=== PATIENT | male | born 1980 | race Two or more races ===

== ENCOUNTER 2021-01-04 20:49 | Inpatient (IN) | payer SELFPAY ==
[~2021-01-04] VITALS: Ht 203.2 cm; Wt 116.1 kg
--- NOTE | 2021-01-04 21:22 | PHYS DOC ---
Adult General Chief Complaint Chief Complaint: ANKLE PROBLEM HPI HPI Patient is a 40 year old male with no significant past medical history presents emergency department complaining of left-sided ankle and foot pain after a fall. Patient states that 3 PM today he was at work when he fell approximately 10 feet down and landed on his left foot. A popping sensation in the left ankle. Was seen in an urgent care where they stated that he had a tib-fib fracture, splinted the patient centimeter. Denies any head injury or loss of conscious. Review of Systems Review of Systems Constitutional: Denies fever or chills [] Eyes: Denies change in visual acuity, redness, or eye pain [] HENT: Denies nasal congestion or sore throat [] Respiratory: Denies cough or shortness of breath [] Cardiovascular: No additional information not addressed in HPI [] GI: Denies abdominal pain, nausea, vomiting, bloody stools or diarrhea [] : Denies dysuria or hematuria [] Musculoskeletal: Denies back pain or joint pain [] Integument: Denies rash or skin lesions [] Neurologic: Denies headache, focal weakness or sensory changes [] Endocrine: Denies polyuria or polydipsia [] All other systems were reviewed and found to be within normal limits, except as documented in this note. Current Medications Current Medications Current Medications Medications (Trade) Dose Ordered Sig/Jose A Start Time Stop Time Status Last Admin Dose Admin Oxycodone/ Acetaminophen (Percocet 5/325) 2 tab 1X ONCE 01/04/21 22:00 01/04/21 22:01 DC 01/04/21 21:48 2 TAB Allergies Allergies Allergies Coded Allergies Type Severity Reaction Last Updated Verified No Known Drug Allergies 01/04/21 No Physical Exam Physical Exam Constitutional: Well developed, well nourished, no acute distress, non-toxic appearance. [] HENT: Normocephalic, atraumatic, bilateral external ears normal, oropharynx moist, no oral exudates, nose normal. [] Eyes: PERRLA, EOMI, conjunctiva normal, no discharge. [] Neck: Normal range of motion, no tenderness, supple, no stridor. [] Cardiovascular:Heart rate regular rhythm, no murmur [] Lungs & Thorax: Bilateral breath sounds clear to auscultation [] Abdomen: Bowel sounds normal, soft, no tenderness, no masses, no pulsatile masses. [] Skin: Warm, dry, no erythema, no rash. [] Back: No tenderness, no CVA tenderness. [] Extremities: Significant tenderness over the left distal foreleg and proximal ankle, no cyanosis, no clubbing, ROM intact, no edema. [] Neurologic: Alert and oriented X 3, normal motor function, normal sensory function, no focal deficits noted. [] Psychologic: Affect normal, judgement normal, mood normal. [] Current Patient Data Vital Signs Vital Signs Date Time Temp Pulse Resp B/P (MAP) Pulse Ox O2 Delivery O2 Flow Rate FiO2 01/04/21 21:48 97 EKG EKG [] Radiology/Procedures Radiology/Procedures [] Course & Med Decision Making Course & Med Decision Making Pertinent Labs and Imaging studies reviewed. (See chart for details) 40M presenting with significant left-sided ankle and leg pain after a fall. Will obtain x-rays and treat the patient for presumed tib-fib fracture Dragon Disclaimer Dragon Disclaimer This electronic medical record was generated, in whole or in part, using a voice recognition dictation system. Departure Departure Impression: Primary Impression: Unstable left ankle Disposition: ADMITTED INPT THIS HOSP Condition: YESI HENRIQUEZ MD Jan 04, 2021 21:22
--- NOTE | 2021-01-04 21:43 | RAD ---
XR FOOT_LEFT 3 VIEWS, XR EXAM OF ANKLE_LEFT 2V DATE: 01/04/2021 9:34 PM INDICATION: Reason: fall / Spl. Instructions: / History: COMPARISON: None. FINDINGS/ IMPRESSION: Acute comminuted and mildly displaced distal tibia fracture with involvement of the tibial plafond. A nkle joint is grossly in alignment. Acute nonspecific transverse fracture of the mid to distal fibula. Electronically signed by: Modesto Balderas MD (01/04/2021 9:41 PM) ABIMAEL
--- NOTE | 2021-01-04 21:45 | RAD ---
XR LT TIBIA + FIBULA, XR KNEE _3 VIEWS_LT DATE: 01/04/2021 9:34 PM INDICATION: Pain, fall COMPARISON: None. FINDINGS/ IMPRESSION: No knee acute fracture or dislocation of the knee. Acute fractures of the distal tibia and fibula as described on concurrent ankle radiograph report. Pr oximal tibia and fibula are intact. Electronically signed by: Modesto Balderas MD (01/04/2021 9:43 PM) ALICIA
[2021-01-04] MEDS ORDERED: oxyCODONE/APAP 5/325 1 TAB TABLET PO ONE (22:00)
[2021-01-04] MEDS ORDERED: KETOROLAC 15 MG/ML VIAL. IVP ONE (22:30)
[2021-01-04 23:20] VITALS: BP 153/88
[2021-01-04] MEDS: MORPHINE SULFATE 4 MG/ML VIAL. IV PRN (23:53)
[2021-01-05] MEDS: MORPHINE SULFATE 4 MG/ML VIAL. IV PRN ×6 (02:26→20:30)
[2021-01-05] MEDS: IV NORMAL SALINE 1000ML BAG 1,000 ML IV SCH ×4 (02:27→22:00)
[2021-01-05 03:00] VITALS: BP 142/91
[2021-01-05] MEDS: KETOROLAC 15 MG/ML VIAL. IV SCH ×4 (05:58→23:24)
--- NOTE | 2021-01-05 06:32 | EKG ---
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
[2021-01-05 07:00] VITALS: BP 145/72
[2021-01-05 08:06] LABS: BASO % 0 % (0-3); EOS % 0 % (0-3); HEMATOCRIT 41.6 % (39.0-53.0); HEMOGLOBIN 14.2 g/dL (13.0-17.5); LYMPH # 1.4 x10^3/uL (1.0-4.8); LYMPH % 18 % (24-48); MEAN CORPUSCULAR HEMOGLOBIN 31 pg (25-35); MEAN CORPUSCULAR HGB CONC 34 g/dL (31-37); MEAN CORPUSCULAR VOLUME 90 fL (79-100); MONO # 0.8 x10^3/uL (0.0-1.1); MONO % 11 % (0-9); NEUT # 5.6 x10^3/uL (1.8-7.7); NEUT % 71 % (31-73); PLATELET COUNT 246 x10^3/uL (140-400); RED BLOOD COUNT 4.61 x10^6/uL (4.30-5.70); RED CELL DISTRIBUTION WIDTH 13.4 % (11.5-14.5); WHITE BLOOD COUNT 7.9 x10^3/uL (4.0-11.0)
[2021-01-05 08:24] LABS: CALCIUM 9.1 mg/dL (8.5-10.1); CREATININE 0.9 mg/dL (0.7-1.3); GFR 92.5; POTASSIUM 3.7 mmol/L (3.5-5.1)
--- NOTE | 2021-01-05 10:52 | PDOC1 ---
History and Physical Date of Admission Date of Admission DATE: 01/05/21 TIME: 10:50 Identification/Chief Complaint Chief Complaint ANKLE PAIN, FALL FROM A TREE AT HOME 01-04 History of Present Illness History of Present Illness 40 year old male with no significant past medical history presents emergency department complaining of left-sided ankle and foot pain after a fall. FROM A TREE Patient states that ON 01-04 he fell approximately 10 feet down and landed on his left foot. A popping sensation in the left ankle. Was seen in an urgent care where they stated that he had a tib-fib fracture, splinted the patient . Denies any head injury or loss of conscious. 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 Past Medical History Cardiovascular: No pertinent hx Pulmonary: No pertinent hx Heme/Onc: No pertinent hx Psych: No pertinent hx Infectious disease: No pertinent hx ENT: No pertinent hx Endocrine: No pertinent hx Dermatology: No pertinent hx Past Surgical History Past Surgical History: No pertinent history Family History Family History: Hypertension Current Problem List Problem List Problems Medical Problems: (1) Unstable left ankle Status: Acute Current Medications Current Medications Current Medications Oxycodone/ Acetaminophen (Percocet 5/325) 2 tab 1X ONCE PO Last administered on 01/04/21at 21:48; Start 01/04/21 at 22:00; Stop 01/04/21 at 22:01; Status DC Ketorolac Tromethamine (Toradol 15mg Vial) 15 mg 1X ONCE IVP Last administered on 01/04/21at 22:22; Start 01/04/21 at 22:30; Stop 01/04/21 at 22:31; Status DC Morphine Sulfate (Morphine Sulfate) 4 mg PRN Q2HR PRN IV SEVERE PAIN 7-10 Last administered on 01/05/21at 08:00; Start 01/04/21 at 22:15; Stop 01/05/21 at 22:14 Ketorolac Tromethamine (Toradol 15mg Vial) 15 mg Q6HRS IV Last administered on 01/05/21at 05:58; Start 01/05/21 at 06:00; Stop 01/10/21 at 05:59 Sodium Chloride 1,000 ml @ 100 mls/hr Q10H IV Last administered on 01/05/21at 02:27; Start 01/05/21 at 02:00 Allergies Allergies: Coded Allergies: No Known Drug Allergies (Unverified , 01/04/21) ROS Review of System 14 PT ROS OTHERWISE NEG General: No: Chills, Night Sweats, Fatigue, Malaise, Appetite, Other PSYCHOLOGICAL ROS: No: Anxiety, Behavioral Disorder, Concentration difficultie, Decreased libido, Depression, Disorientation, Hallucinations, Hostility, Irritablity, Memory difficulties, Mood Swings, Obsessive thoughts, Physical abuse, Sexual abuse, Sleep disturbances, Suicidal ideation, Other Eyes: No Blurry vision, No Decreased vision, No Double vision, No Dry eyes, No Excessive tearing, No Eye Pain, No Itchy Eyes, No Loss of vision, No Photoph obia, No Scotomata, No Uses contacts, No Uses glasses, No Other HEENT: No: Heacaches, Visual Changes, Hearing change, Nasal congestion, Nasal discharge, Oral lesions, Sinus pain, Sore Throat, Epistaxis, Sneezing, Snoring, Tinnitus, Vertigo, Vocal changes, Other ALLERGY AND IMMUNOLOGY: No: Hives, Insect Bite Sensitivity, Itchy/Watery Eyes, Nasal Congestion, Post Nasal Drip, Seasonal Allergies, Other Hematological and Lymphatic: No: Bleeding Problems, Blood Clots, Blood Transfusions, Brusing, Night Sweats, Pallor, Swollen Lymph Nodes, Other ENDOCRINE: No: Breast Changes, Galactorrhea, Hair Pattern Changes, Hot Flashes, Malaise/lethargy, Mood Swings, Palpitations, Polydipsia/polyuria, Skin Changes, Temperature Intolerance, Unexpected Weight Changes, Other Breast: No New/Changing Breast Lumps, No Nipple changes, No Nipple discharge, No Other Respiratory: No: Cough, Hemoptysis, Orthopnea, Pleuritic Pain, Shortness of breath, SOB with excertion, Sputum Changes, Stridor, Tachypnea, Wheezing, Other Cardiovascular: No Chest Pain, No Palpitations, No Orthopnea, No Paroxysmal Noc. Dyspnea, No Edema, No Lt Headedness, No Other Gastrointestinal: No Nausea, No Vomiting, No Abdominal Pain, No Diarrhea, No Constipation, No Melena, No Hematochezia, No Other Genitourinary: No Dysuria, No Frequency, No Incontinence, No Hematuria, No Re tention, No Discharge, No Urgency, No Pain, No Flank Pain, No Other, No , No , No , No , No , No , No Musculoskeletal: Yes Gait Disturbance, Yes Joint Pain Neurological: Yes Gait Disturbance; No Behavorial Changes, No Bowel/Bladder ControlChng, No Confusion, No Dizziness, No Headaches, No Impaired Coord/balance, No Memory Loss, No Numbness/Tingling, No Seizures, No Speech Problems, No Tremors, No Visual Changes, No Weakness, No Other Skin: No Dry Skin, No Eczema, No Hair Changes, No Lumps, No Mole Changes, No Mottling, No Nail Changes, No Pruritus, No Rash, No Skin Lesion Changes, No Other, No Acne Physical Exam Physical Exam Constitutional: Well developed, well nourished, no acute distress, non-toxic appearance. [] HENT: Normocephalic, atraumatic, bilateral external ears normal, oropharynx moist, no oral exudates, nose normal. [] Eyes: PERRLA, EOMI, conjunctiva normal, no discharge. [] Neck: Normal range of motion, no tenderness, supple, no stridor. [] Cardiovascular:Heart rate regular rhythm, no murmur [] Lungs & Thorax: Bilateral breath sounds clear to auscultation [] Abdomen: Bowel sounds normal, soft, no tenderness, no masses, no pulsatile masses. [] Skin: Warm, dry, no erythema, no rash. [] Back: No tenderness, no CVA tenderness. [] Extremities: Significant tenderness over the left distal foreleg and proximal ankle, no cyanosis, no clubbing, ROM intact, no edema. [] Neurologic: Alert and oriented X 3, , normal sensory function, no focal deficits noted. [] Psychologic: Affect normal, judgment normal, mood normal. [] General: Alert, Oriented X3, Cooperative, No acute distress, mild distress HEENT: Atraumatic, PERRLA, EOMI, Mucous membr. moist/pink Lungs: Clear to auscultation, Normal air movement Heart: S1S2, RRR, no thrills, no rubs, no gallops, no murmurs Breasts: Not examined Abdomen: Normal bowel sounds, Soft Rectal Exam: not examined PELVIC: Examination not indicated Extremities: No cyanosis Neuro: Normal speech, Cranial nerves 3-12 NL Psych/Mental Status: Mental status NL, Mood NL Vitals Vitals Vital Signs Date Time Temp Pulse Resp B/P (MAP) Pulse Ox O2 Delivery O2 Flow Rate FiO2 01/05/21 08:30 Room Air 01/05/21 07:00 97.9 74 18 145/72 (96) 97 97.9 Labs Labs Laboratory Tests Test 01/05/21 06:10 01/05/21 06:15 White Blood Count 7.9 x10^3/uL (4.0-11.0) Red Blood Count 4.61 x10^6/uL (4.30-5.70) Hemoglobin 14.2 g/dL (13.0-17.5) Hematocrit 41.6 % (39.0-53.0) Mean Corpuscular Volume 90 fL (79-100) Mean Corpuscular Hemoglobin 31 pg (25-35) Mean Corpuscular Hemoglobin Concent 34 g/dL (31-37) Red Cell Distribution Width 13.4 % (11.5-14.5) Platelet Count 246 x10^3/uL (140-400) Neutrophils (%) (Auto) 71 % (31-73) Lymphocytes (%) (Auto) 18 % (24-48) Monocytes (%) (Auto) 11 % (0-9) Eosinophils (%) (Auto) 0 % (0-3) Basophils (%) (Auto) 0 % (0-3) Neutrophils # (Auto) 5.6 x10^3/uL (1.8-7.7) Lymphocytes # (Auto) 1.4 x10^3/uL (1.0-4.8) Monocytes # (Auto) 0.8 x10^3/uL (0.0-1.1) Eosinophils # (Auto) 0.0 x10^3/uL (0.0-0.7) Basophils # (Auto) 0.0 x10^3/uL (0.0-0.2) Sodium Level 140 mmol/L (136-145) Potassium Level 3.7 mmol/L (3.5-5.1) Chloride Level 103 mmol/L (98-107) Carbon Dioxide Level 29 mmol/L (21-32) Anion Gap 8 (6-14) Blood Urea Nitrogen 15 mg/dL (8-26) Creatinine 0.9 mg/dL (0.7-1.3) Estimated GFR (Cockcroft-Gault) 92.5 Glucose Level 107 mg/dL (70-99) Calcium Level 9.1 mg/dL (8.5-10.1) Laboratory Tests Test 01/05/21 06:10 01/05/21 06:15 White Blood Count 7.9 x10^3/uL (4.0-11.0) Red Blood Count 4.61 x10^6/uL (4.30-5.70) Hemoglobin 14.2 g/dL (13.0-17.5) Hematocrit 41.6 % (39.0-53.0) Mean Corpuscular Volume 90 fL (79-100) Mean Corpuscular Hemoglobin 31 pg (25-35) Mean Corpuscular Hemoglobin Concent 34 g/dL (31-37) Red Cell Distribution Width 13.4 % (11.5-14.5) Platelet Count 246 x10^3/uL (140-400) Neutrophils (%) (Auto) 71 % (31-73) Lymphocytes (%) (Auto) 18 % (24-48) Monocytes (%) (Auto) 11 % (0-9) Eosinophils (%) (Auto) 0 % (0-3) Basophils (%) (Auto) 0 % (0-3) Neutrophils # (Auto) 5.6 x10^3/uL (1.8-7.7) Lymphocytes # (Auto) 1.4 x10^3/uL (1.0-4.8) Monocytes # (Auto) 0.8 x10^3/uL (0.0-1.1) Eosinophils # (Auto) 0.0 x10^3/uL (0.0-0.7) Basophils # (Auto) 0.0 x10^3/uL (0.0-0.2) Sodium Level 140 mmol/L (136-145) Potassium Level 3.7 mmol/L (3.5-5.1) Chloride Level 103 mmol/L (98-107) Carbon Dioxide Level 29 mmol/L (21-32) Anion Gap 8 (6-14) Blood Urea Nitrogen 15 mg/dL (8-26) Creatinine 0.9 mg/dL (0.7-1.3) Estimated GFR (Cockcroft-Gault) 92.5 Glucose Level 107 mg/dL (70-99) Calcium Level 9.1 mg/dL (8.5-10.1) Images Images XR FOOT_LEFT 3 VIEWS, XR EXAM OF ANKLE_LEFT 2V DATE: 01/04/2021 9:34 PM INDICATION: Reason: fall / Spl. Instructions: / History: COMPARISON: None. FINDINGS/ IMPRESSION: Acute comminuted and mildly displaced distal tibia fracture with involvement of the tibial plafond. Ankle joint is grossly in alignment. Acute nonspecific transverse fracture of the mid to distal fibula. Electronically signed by: Cammie Estrada MD (01/04/2021 9:41 PM) NIMAJENNIFFER DICTATED and SIGNED BY: CAMMIE ESTRADA MD PATIENT: OLGA LIDIA NGUYEN ACCOUNT: [id number] : 1980 LOCATION: ER AGE: 40 SEX: M EXAM STATUS: PRE ER ORD. PHYSICIAN: YESI FENG MD REASON: fall PROCEDURE: TIBIA FIBULA LEFT XR LT TIBIA + FIBULA, XR KNEE _3 VIEWS_LT DATE: 01/04/2021 9:34 PM INDICATION: Pain, fall COMPARISON: None. FINDINGS/ IMPRESSION: No knee acute fracture or dislocation of the knee. Acute fractures of the distal tibia and fibula as described on concurrent ankle radiograph report. Proximal tibia and fibula are intact. Electronically signed by: Cammie Estrada MD (01/04/2021 9:43 PM) NIMAJESSICA DICTATED and SIGNED BY: CAMMIE ESTRADA MD DATE: 01/04/21 [id number] VTE Prophylaxis Ordered VTE Prophylaxis Devices: No VTE Pharmacological Prophylaxi: Yes Assessment/Plan Assessment/Plan IMPRESSION: Acute fractures of the distal tibia and fibula Acute comminuted and mildly displaced distal tibia fracture with involvement of the tibial plafond. Ankle joint is grossly in alignment. highly comminuted intra-articular fracture of the distal tibia. The weightbearing articular surface is shattered into many fragments. The largest central fragments are rotated by 45 degrees and depressed by approximately 1 cm. The largest fragments measure 2.7 x 1.4 cm and 1.7 x 1.3 cm, respectively. An anterolateral fragment is displaced anterolaterally and locked against the anterolateral aspect of the talar dome. Multiple fragments involve the base of the medial malleolus, which remains normally aligned with the talus Acute nonspecific transverse fracture of the mid to distal fibula. MECHANICAL FALL plan admit iv pain control ORTHO CONSULT DVT PROPHYLAXIS NPO P MN DICTATED Justifications for Admission Other Justification JERRY ISIDRO MD Jan 05, 2021 10:51
[2021-01-05 11:00] VITALS: BP 138/80
--- NOTE | 2021-01-05 13:48 | PDOC2 ---
CONSULT Date of Consult Date of Consult DATE: 01/05/21 TIME: 13:47 Reason for Consult Reason for Consult: Left distal tibia fracture Identification/Chief Complaint Chief Complaint Left ankle pain after a fall Source Source: Chart review, Patient History of Present Illness Reason for Visit: This 40-year-old man was working at home, cutting down a tree, and he was 9 or 10 feet up in the air when he fell. There was no major deformity but he had immediate pain and swelling at the ankle and has been unable to weight-bear since. Past Medical History Past Medical History Denies any significant medical history Past Surgical History Past Surgical History No surgeries Family History Family History: Hypertension Social History No Lives: with Family Current Problem List Problem List Problems Medical Problems: (1) Unstable left ankle Status: Acute Current Medications Current Medications Current Medications Oxycodone/ Acetaminophen (Percocet 5/325) 2 tab 1X ONCE PO Last administered on 01/04/21at 21:48; Start 01/04/21 at 22:00; Stop 01/04/21 at 22:01; Status DC Ketorolac Tromethamine (Toradol 15mg Vial) 15 mg 1X ONCE IVP Last administered on 01/04/21at 22:22; Start 01/04/21 at 22:30; Stop 01/04/21 at 22:31; Status DC Morphine Sulfate (Morphine Sulfate) 4 mg PRN Q2HR PRN IV SEVERE PAIN 7-10 Last administered on 01/05/21at 12:27; Start 01/04/21 at 22:15; Stop 01/05/21 at 22:14 Ketorolac Tromethamine (Toradol 15mg Vial) 15 mg Q6HRS IV Last administered on 01/05/21at 12:26; Start 01/05/21 at 06:00; Stop 01/10/21 at 05:59 Sodium Chloride 1,000 ml @ 100 mls/hr Q10H IV Last administered on 01/05/21at 12:25; Start 01/05/21 at 02:00 Allergies Allergies: Coded Allergies: No Known Drug Allergies (Unverified , 01/04/21) ROS General: No: Chills, Night Sweats Eyes: No Double vision HEENT: No: Heacaches, Visual Changes Hematological and Lymphatic: No: Bleeding Problems, Blood Clots Respiratory: No: Cough, Shortness of breath Cardiovascular: No Chest Pain, No Palpitations Genitourinary: No Dysuria, No Hematuria Musculoskeletal: Yes Joint Pain, Yes Joint Swelling Skin: Yes Other (Has developed several large blisters over the fracture site) Physical Exam General: Alert, Cooperative HEENT: Atraumatic Lungs: Normal air movement Heart: Regular rate Abdomen: Soft Extremities: Other Skin: Other (Fracture blisters at the ankle joint) MUSCULOSKELETAL: Abnormal exam of left (Ankle as above) Vitals VITALS Vital Signs Date Time Temp Pulse Resp B/P (MAP) Pulse Ox O2 Delivery O2 Flow Rate FiO2 01/05/21 12:57 Room Air 01/05/21 11:00 98.4 72 18 138/80 (99) 100 98.4 Labs Labs Laboratory Tests Test 01/05/21 06:10 01/05/21 06:15 White Blood Count 7.9 x10^3/uL (4.0-11.0) Red Blood Count 4.61 x10^6/uL (4.30-5.70) Hemoglobin 14.2 g/dL (13.0-17.5) Hematocrit 41.6 % (39.0-53.0) Mean Corpuscular Volume 90 fL (79-100) Mean Corpuscular Hemoglobin 31 pg (25-35) Mean Corpuscular Hemoglobin Concent 34 g/dL (31-37) Red Cell Distribution Width 13.4 % (11.5-14.5) Platelet Count 246 x10^3/uL (140-400) Neutrophils (%) (Auto) 71 % (31-73) Lymphocytes (%) (Auto) 18 % (24-48) Monocytes (%) (Auto) 11 % (0-9) Eosinophils (%) (Auto) 0 % (0-3) Basophils (%) (Auto) 0 % (0-3) Neutrophils # (Auto) 5.6 x10^3/uL (1.8-7.7) Lymphocytes # (Auto) 1.4 x10^3/uL (1.0-4.8) Monocytes # (Auto) 0.8 x10^3/uL (0.0-1.1) Eosinophils # (Auto) 0.0 x10^3/uL (0.0-0.7) Basophils # (Auto) 0.0 x10^3/uL (0.0-0.2) Sodium Level 140 mmol/L (136-145) Potassium Level 3.7 mmol/L (3.5-5.1) Chloride Level 103 mmol/L (98-107) Carbon Dioxide Level 29 mmol/L (21-32) Anion Gap 8 (6-14) Blood Urea Nitrogen 15 mg/dL (8-26) Creatinine 0.9 mg/dL (0.7-1.3) Estimated GFR (Cockcroft-Gault) 92.5 Glucose Level 107 mg/dL (70-99) Calcium Level 9.1 mg/dL (8.5-10.1) Laboratory Tests Test 01/05/21 06:10 01/05/21 06:15 White Blood Count 7.9 x10^3/uL (4.0-11.0) Red Blood Count 4.61 x10^6/uL (4.30-5.70) Hemoglobin 14.2 g/dL (13.0-17.5) Hematocrit 41.6 % (39.0-53.0) Mean Corpuscular Volume 90 fL (79-100) Mean Corpuscular Hemoglobin 31 pg (25-35) Mean Corpuscular Hemoglobin Concent 34 g/dL (31-37) Red Cell Distribution Width 13.4 % (11.5-14.5) Platelet Count 246 x10^3/uL (140-400) Neutrophils (%) (Auto) 71 % (31-73) Lymphocytes (%) (Auto) 18 % (24-48) Monocytes (%) (Auto) 11 % (0-9) Eosinophils (%) (Auto) 0 % (0-3) Basophils (%) (Auto) 0 % (0-3) Neutrophils # (Auto) 5.6 x10^3/uL (1.8-7.7) Lymphocytes # (Auto) 1.4 x10^3/uL (1.0-4.8) Monocytes # (Auto) 0.8 x10^3/uL (0.0-1.1) Eosinophils # (Auto) 0.0 x10^3/uL (0.0-0.7) Basophils # (Auto) 0.0 x10^3/uL (0.0-0.2) Sodium Level 140 mmol/L (136-145) Potassium Level 3.7 mmol/L (3.5-5.1) Chloride Level 103 mmol/L (98-107) Carbon Dioxide Level 29 mmol/L (21-32) Anion Gap 8 (6-14) Blood Urea Nitrogen 15 mg/dL (8-26) Creatinine 0.9 mg/dL (0.7-1.3) Estimated GFR (Cockcroft-Gault) 92.5 Glucose Level 107 mg/dL (70-99) Calcium Level 9.1 mg/dL (8.5-10.1) Images Images Reports reviewed, images independently reviewed. Comminuted tibial pilon fracture and associated fibula fracture. [facility] [address] [place] [address] IMAGING REPORT Signed PATIENT: OLGA LIDIA NGUYEN ACCOUNT: [id number] : 1980 LOCATION: ER AGE: 40 SEX: M EXAM STATUS: PRE ER ORD. PHYSICIAN: YESI FENG MD REASON: fall PROCEDURE: TIBIA FIBULA LEFT XR LT TIBIA + FIBULA, XR KNEE _3 VIEWS_LT DATE: 01/04/2021 9:34 PM INDICATION: Pain, fall COMPARISON: None. FINDINGS/ IMPRESSION: No knee acute fracture or dislocation of the knee. Acute fractures of the distal tibia and fibula as described on concurrent ankle radiograph report. Proximal tibia and fibula are intact. Electronically signed by: Cammie Balderas MD (01/04/2021 9:43 PM) [facility] DICTATED and SIGNED BY: CAMMIE BALDERAS MD DATE: 01/04/212140 I reviewed the CT scan, and there is proximal migration of the talus into the tibiotalar joint, with comminuted tibiotalar joint as per the report below: [facility] [address] [place] [address] IMAGING REPORT Signed PATIENT: OLGA LIDIA NGUYEN ACCOUNT: [id number] : 1980 LOCATION: [address] [place] [address] AGE: 40 SEX: M EXAM STATUS: ADM IN ORD. PHYSICIAN: SANTOS GREENFIELD MD REASON: evaluate fracture at ankle and distal tibia (I do NOT need proximal tibia) PROCEDURE: CT LOWER EXTREMITY WO LEFT EXAM: CT left foot and ankle without contrast. HISTORY: Fracture, preoperative planning. TECHNIQUE: CT of the left foot and ankle was performed without intravenous contrast. One or more of the following individualized dose reduction techniques were utilized for this examination: 1. Automated exposure control. 2. Adjustment of the mA and/or kV according to patient size. 3. Use of iterative reconstruction technique. COMPARISON: Yesterday's plain radiographs. FINDINGS: There is a highly comminuted intra-articular fracture of the distal tibia. The weightbearing articular surface is shattered into many fragments. The largest central fragments are rotated by 45 degrees and depressed by approximately 1 cm. The largest fragments measure 2.7 x 1.4 cm and 1.7 x 1.3 cm, respectively. An anterolateral fragment is displaced anterolaterally and locked against the anterolateral aspect of the talar dome. Multiple fragments involve the base of the medial malleolus, which remains normally aligned with the talus. The posterior malleolus is rotated and displaced, resulting in an articular surface gap of 1.6 cm. There is a nondisplaced transverse fracture of the distal fibular diaphysis 8.5 cm proximal to the tibial plafond. Small avulsion fragments involve the anterior and calcaneofibular ligament origins. The posterior tibial and flexor digitorum tendons are included in a fracture gap created by posterior and medial malleolar fragments. The lateral tendons are not included in a fracture defect. No fractures are appreciated within the left foot. Joint spaces and alignment are maintained. There is diffuse soft tissue swelling about the foot and ankle. Blisters are noted along the medial ankle. There are moderate plantar and posterior calcaneal spurs. IMPRESSION: 1. Highly comminuted intra-articular fracture of the distal tibia. The largest fragments of the central weightbearing portion of the tibial articular surface are depressed by approximately 1 cm and rotated by 45 degrees. Posterior malleolar and Tillaux-type fragments are displaced outward, and are currently locked along the margins of the talar dome. 2. The posterior tibial and flexor digitorum tendons are included in a fracture gap between medial and posterior malleolar fragments. 3. Transverse nondisplaced fracture of the fibular diaphysis. Small gallstone fragments at the lateral malleolus. Electronically signed by: Aislinn Mtz MD (01/05/2021 2:59 PM) [facility] DICTATED and SIGNED BY: VLADISLAV MTZ MD DATE: 01/05/21 1449 Assessment/Plan Assessment/Plan Displaced pilon fracture of left tibia, initial encounter for closed fracture S82.872A Nondisplaced transverse fracture of shaft of left fibula, initial encounter for closed fracture S82.425A Unfortunately he already has developed severe fracture blisters around the medial distal tibia where an incision would be used. This precludes any immediate open fracture surgery because with the soft tissues being so severely compromised, the risk of infection is unacceptably high. The correct treatment for this would involve immobilization, preferably with the joint reduced at its proper length. There is at least a centimeter of shortening, and so I spoke to the patient about my recommendation for placement of an external fixator which is basically portable traction, allowing traction across the ankle joint and should allow improved alignment and improve the long- term outcome by preventing any further shortening displacement or partial healing in the incorrect position. Holding the ankle out to the correct length will be used for about 3 weeks, or until the soft tissues are acceptable for the open reduction and internal fixation of the tibiotalar joint. I spoke to him about the need for two surgeries for this injury, one now with the external fixator, and then a delayed second surgery once the soft tissues can accommodate open surgery, for removal of the external fixator and open treatment with internal fixation using plates and screws. SANTOS GREENFIELD MD Jan 05, 2021 13:48
--- NOTE | 2021-01-05 15:01 | RAD ---
EXAM: CT left foot and ankle without contrast. HISTORY: Fracture, preoperative planning. TECHNIQUE: CT of the left foot and ankle was performed without intravenous contrast. One or more of t he following individualized dose reduction techniques were utilized for this examination: 1. Automated exposure control. 2. Adjustment of the mA and/or kV according to patient size. 3. Use of iterative reconstruction technique. COMPARISON: Yesterday's plain radiographs. FINDINGS: There is a highly comminuted intra-articular fracture of the distal tibia. The weightbearin g articular surface is shattered into many fragments. The largest central fragments are rotated by 45 degrees and depressed by approximately 1 cm. The largest fragments measure 2.7 x 1.4 cm and 1.7 x 1. 3 cm, respectively. An anterolateral fragment is displaced anterolaterally and locked against the ant erolateral aspect of the talar dome. Multiple fragments involve the base of the medial malleolus, whi ch remains normally aligned with the talus. The posterior malleolus is rotated and displaced, resulti ng in an articular surface gap of 1.6 cm. There is a nondisplaced transverse fracture of the distal fibular diaphysis 8.5 cm proximal to the ti bial plafond. Small avulsion fragments involve the anterior and calcaneofibular ligament origins. The posterior tibial and flexor digitorum tendons are included in a fracture gap created by posterior and medial malleolar fragments. The lateral tendons are not included in a fracture defect. No fractures are appreciated within the left foot. Joint spaces and alignment are maintained. There is diffuse soft tissue swelling about the foot and ankle. Blisters are noted along the medial a nkle. There are moderate plantar and posterior calcaneal spurs. IMPRESSION: 1. Highly comminuted intra-articular fracture of the distal tibia. The largest fragments of the centr al weightbearing portion of the tibial articular surface are depressed by approximately 1 cm and rota aquiles by 45 degrees. Posterior malleolar and Tillaux-type fragments are displaced outward, and are curr ently locked along the margins of the talar dome. 2. The posterior tibial and flexor digitorum tendons are included in a fracture gap between medial an d posterior malleolar fragments. 3. Transverse nondisplaced fracture of the fibular diaphysis. Small gallstone fragments at the latera l malleolus. Electronically signed by: Aislinn Mtz MD (01/05/2021 2:59 PM) [facility]
[2021-01-05] MEDS ORDERED: ZOLPIDEM 5 MG TABLET. PO PRN (16:15)
[2021-01-05] MEDS ORDERED: SODIUM PHOSPHATES 19/7GM 133 ML ENEMA. PR PRN (16:15)
[2021-01-05] MEDS ORDERED: DOCUSATE SODIUM 100 MG CAPSULE. PO PRN (16:15)
[2021-01-05] MEDS ORDERED: MAG HYDROX/ALUMINUM HYD/SIMETH 30 ML ORAL.SUSP PO PRN (16:15)
[2021-01-05] MEDS ORDERED: ONDANSETRON PF 4 MG/2 ML VIAL. IV PRN (16:15)
[2021-01-05] MEDS ORDERED: LORazepam 0.5 MG TABLET PO PRN (16:15)
[2021-01-05] MEDS ORDERED: 0.9 % SODIUM CHLORIDE 10 ML DISP.SYRIN. IV PRN (16:15)
[2021-01-05] MEDS ORDERED: guaiFENesin ORAL 200 MG/10 ML LIQUID. PO PRN (16:15)
[2021-01-05] MEDS ORDERED: ALBUTEROL SULFATE 2.5 MG/3 ML NEBU. NEB PRN (16:15)
[2021-01-05] MEDS ORDERED: cloNIDine HCL 0.1 MG TABLET PO PRN (16:15)
[2021-01-05] MEDS ORDERED: ACETAMINOPHEN 325 MG TABLET. PO PRN (16:15)
[2021-01-05] MEDS ORDERED: ENOXAPARIN 40 MG/0.4 ML SYRINGE. SQ SCH (17:00)
--- NOTE | 2021-01-05 17:10 | NUR ---
Paged Dr. Mariscal, no blood thinner at this time. Will d/c order.
--- NOTE | 2021-01-05 17:37 | HP ---
ADMIT DATE: HISTORY OF PRESENT ILLNESS: This pleasant 40-year-old male, fell from a tree at home while cutting the limb yesterday, complaining of left-sided ankle and foot pain. He fell approximately 10 feet and landed on his left foot and had a popping sensation, went to urgent care where x-ray showed a tib-fib fracture. He is currently splinted and seen by Ortho. Plan initially for surgery tomorrow. PAST MEDICAL HISTORY: No significant pulmonary or cardiovascular history. No endocrine history, no previous surgery. FAMILY HISTORY: Positive for hypertension. CURRENT MEDICATIONS: Include Percocet, IV Toradol, morphine. ALLERGIES: He has no known drug allergies. REVIEW OF SYSTEMS: A 14-point review of systems negative chest pain, shortness of breath. Denies double vision, headache, bleeding problems, blood clots. Denies chest pain, cough, fever, pleuritic pain, shortness of breath. Denies palpitations, orthopnea, abdominal pain, diarrhea, constipation. Denies blood per rectum. Denies urinary frequency, incontinence or hematuria. Denies bowel or bladder problems. No impaired coordination. No memory loss, no speech loss or tremors. Denies visual changes or head injury. No weakness. Denies hair changes, hearing changes, lumps, mole changes, rashes, no skin lesions or changes. PHYSICAL EXAMINATION: GENERAL: Well-developed, well-nourished, no acute distress, appears very healthy. NECK: Supple. HEENT: Throat and pharynx clear. Pupils are equal and reactive to light. LUNGS: Clear to auscultation. CARDIOVASCULAR: Regular rate and rhythm without thrill, gallop or murmur, S3 or S4. ABDOMEN: Soft, nontender. EXTREMITIES: Without erythema or rash. BACK: No CVA tenderness. He has tenderness of the left distal foreleg and proximal ankle. No cyanosis or clubbing. NEUROLOGIC: He is alert and oriented. Normal sensory function. Affect is normal. Judgment is normal. Mood is normal. He is alert and oriented, mild distress. Cranial nerves III through XII are grossly intact. Mood is normal. LABORATORY DATA: Show white count of 7.9, hemoglobin 14.2, MCV is 90, platelets 246,000. Sodium 140, potassium 3.7, chloride 103, CO2 of 29, BUN 15, creatinine 0.9, glucose 107. UA is pending. X-rays of the foot shows acute mildly displaced distal tibia fracture. There is a comminuted intra-articular fracture of his distal tibia with a central fragment rotated to 45 degrees and depressed by 1 cm, largest fragment was 2.7 x 1.4 cm, 1.7 x 1.3 cm. There were multiple fragments involving the base of the medial malleolus normally aligned with talus. IMPRESSION: Mechanical fall. PLAN: Admit. IV pain control. Ortho consult. DVT prophylaxis. N.p.o. after midnight. The patient will be seen by Dr. Mariscal. Anticipate length of stay is two to three days. PROGNOSIS: Good. JERRY ISIDRO MD DR: CARINE/alayna JOB#: [id number] / [id number]
[2021-01-05] MEDS: HYDROcodone/APAP 7.5/325MG 1 TAB TABLET PO PRN ×2 (17:52→23:25)
[2021-01-05 19:29] VITALS: BP 151/70
[2021-01-05 23:20] VITALS: BP 132/71
[2021-01-06] VITALS (13 sets, daily range): BP systolic 116–148; BP diastolic 63–81
[2021-01-06] MEDS: IV NORMAL SALINE 1000ML BAG 1,000 ML IV SCH ×4 (02:15→22:43)
[2021-01-06] MEDS: KETOROLAC 15 MG/ML VIAL. IV SCH ×4 (05:38→22:37)
[2021-01-06] MEDS: HYDROcodone/APAP 7.5/325MG 1 TAB TABLET PO PRN ×2 (05:39→22:37)
[2021-01-06] MEDS: HYDROmorphone 2 MG/ML VIAL IVP PRN ×2 (08:05→12:16)
--- NOTE | 2021-01-06 11:25 | NUR ---
SW following. Discussed with RN, pt from home, room air, NPO. Pt having the first of two surgeries today. The second surgery will be done in 3 weeks time. Med Assist following for self pay status. PT/OT ordered. SW will continue to follow.
[2021-01-06] MEDS ORDERED: MIDAZOLAM HCL/PF 2 MG/2 ML VIAL. ONE (16:32)
[2021-01-06] MEDS ORDERED: fentaNYL PF VIAL 100 MCG/2 ML VIAL ONE (16:32)
[2021-01-06] MEDS ORDERED: DEXAMETHASONE SOD PHOS 4 MG/ML VIAL ONE (16:32)
[2021-01-06] MEDS ORDERED: PROPOFOL 10 MG/ML (20ML) VIAL. IV ONE (16:32)
[2021-01-06] MEDS ORDERED: SEVOFLURANE 61 TO 120 MINUTES. IH ONE (16:32)
[2021-01-06] MEDS ORDERED: LIDOCAINE 2% PF 5 ML VIAL. ONE (16:32)
[2021-01-06] MEDS ORDERED: ONDANSETRON PF 4 MG/2 ML VIAL. ONE (16:33)
[2021-01-06] MEDS ORDERED: BUPIVACAINE-EPI 0.25% 30 ML VIAL KIT. ONE (16:40)
[2021-01-06] MEDS ORDERED: ceFAZolin SODIUM IV Push 1 GM VIAL. IVP ONE (18:00)
--- NOTE | 2021-01-06 18:27 | PDOC ---
PROGRESS NOTES Date of Service: DATE: 01/06/21 TIME: 18:25 Chief Complaint Chief Complaint lower leg fracture after a fall Highly comminuted intra-articular fracture of the distal tibia. leg pain History of Present Illness History of Present Illness to OR today, Dr. Loida Jacksons Vitals Vital Signs Date Time Temp Pulse Resp B/P (MAP) Pulse Ox O2 Delivery O2 Flow Rate FiO2 01/06/21 17:08 98.4 98 17 150/83 99 Room Air 98.4 Physical Exam General: Alert, Oriented X3, Cooperative, No acute distress, mild distress Heart: Regular rate Abdomen: Normal bowel sounds, Soft Extremities: No cyanosis Skin: Other (Fracture blisters at the ankle joint) Assessment and Plan Assessmemt and Plan Problems Medical Problems: (1) Unstable left ankle Status: Acute Comment Review of Relevant I have reviewed the following items keyur (where applicable) has been applied. Labs Laboratory Tests Test 01/05/21 01:26 01/05/21 06:10 01/05/21 06:15 Coronavirus (PCR) Not detected (Not Detected) White Blood Count 7.9 x10^3/uL (4.0-11.0) Red Blood Count 4.61 x10^6/uL (4.30-5.70) Hemoglobin 14.2 g/dL (13.0-17.5) Hematocrit 41.6 % (39.0-53.0) Mean Corpuscular Volume 90 fL (79-100) Mean Corpuscular Hemoglobin 31 pg (25-35) Mean Corpuscular Hemoglobin Concent 34 g/dL (31-37) Red Cell Distribution Width 13.4 % (11.5-14.5) Platelet Count 246 x10^3/uL (140-400) Neutrophils (%) (Auto) 71 % (31-73) Lymphocytes (%) (Auto) 18 % (24-48) Monocytes (%) (Auto) 11 % (0-9) Eosinophils (%) (Auto) 0 % (0-3) Basophils (%) (Auto) 0 % (0-3) Neutrophils # (Auto) 5.6 x10^3/uL (1.8-7.7) Lymphocytes # (Auto) 1.4 x10^3/uL (1.0-4.8) Monocytes # (Auto) 0.8 x10^3/uL (0.0-1.1) Eosinophils # (Auto) 0.0 x10^3/uL (0.0-0.7) Basophils # (Auto) 0.0 x10^3/uL (0.0-0.2) Sodium Level 140 mmol/L (136-145) Potassium Level 3.7 mmol/L (3.5-5.1) Chloride Level 103 mmol/L (98-107) Carbon Dioxide Level 29 mmol/L (21-32) Anion Gap 8 (6-14) Blood Urea Nitrogen 15 mg/dL (8-26) Creatinine 0.9 mg/dL (0.7-1.3) Estimated GFR (Cockcroft-Gault) 92.5 Glucose Level 107 mg/dL (70-99) Calcium Level 9.1 mg/dL (8.5-10.1) Medications Current Medications Oxycodone/ Acetaminophen (Percocet 5/325) 2 tab 1X ONCE PO Last administered on 01/04/21at 21:48; Start 01/04/21 at 22:00; Stop 01/04/21 at 22:01; Status DC Ketorolac Tromethamine (Toradol 15mg Vial) 15 mg 1X ONCE IVP Last administered on 01/04/21at 22:22; Start 01/04/21 at 22:30; Stop 01/04/21 at 22:31; Status DC Morphine Sulfate (Morphine Sulfate) 4 mg PRN Q2HR PRN IV SEVERE PAIN 7-10 Last administered on 01/05/21at 20:30; Start 01/04/21 at 22:15; Stop 01/05/21 at 22:14; Status DC Ketorolac Tromethamine (Toradol 15mg Vial) 15 mg Q6HRS IV Last administered on 01/06/21at 12:16; Start 01/05/21 at 06:00; Stop 01/10/21 at 05:59 Sodium Chloride 1,000 ml @ 100 mls/hr Q10H IV Last administered on 01/05/21at 22:00; Start 01/05/21 at 02:00; Stop 01/06/21 at 16:57; Status DC Hydromorphone HCl (Dilaudid) 0.7 mg PRN Q3HRS PRN IVP MODERATE TO SEVERE PAIN Last administered on 01/06/21at 12:16; Start 01/05/21 at 16:00 Acetaminophen/ Hydrocodone Bitart (Lortab 7.5/325) 1 tab PRN Q4HRS PRN PO MODERATE TO SEVERE PAIN Last administered on 01/06/21at 05:39; Start 01/05/21 at 16:00 Sodium Chloride (Normal Saline Flush) 3 ml QSHIFT PRN IV AFTER MEDS AND BLOOD DRAWS; Start 01/05/21 at 16:15 Sodium Chloride 1,000 ml @ 100 mls/hr Q10H IV Last administered on 01/06/21at 02:15; Start 01/05/21 at 16:15 Ondansetron HCl (Zofran) 4 mg PRN Q4HRS PRN IV NAUSEA/VOMITING; Start 01/05/21 at 16:15 Zolpidem Tartrate (Ambien) 5 mg PRN QHS PRN PO INSOMNIA; Start 01/05/21 at 16:15 Acetaminophen (Tylenol) 650 mg PRN Q4HRS PRN PO TEMP OVER 100.4F OR MILD PAIN; Start 01/05/21 at 16:15 Al Hydroxide/Mg Hydroxide (Mylanta Plus Xs) 30 ml PRN DAILY PRN PO HEARTBURN / GAS; Start 01/05/21 at 16:15 Clonidine HCl (Catapres) 0.1 mg PRN Q6HRS PRN PO SBP>160 OR DBP>90; Start 01/05/21 at 16:15 Sodium Monofluorophosphate (Fleet Adult) 133 ml PRN DAILY PRN AL CONSTIPATION; Start 01/05/21 at 16:15 Docusate Sodium (Colace) 100 mg PRN BID PRN PO HARD STOOLS; Start 01/05/21 at 16:15 Albuterol Sulfate (Ventolin Neb Soln) 2.5 mg PRN Q4HRS PRN NEB SHORTNESS OF BREATH; Start 01/05/21 at 16:15 Guaifenesin (Robitussin) 200 mg PRN Q4HRS PRN PO COUGH; Start 01/05/21 at 16:15 Lorazepam (Ativan) 0.5 mg PRN Q4HRS PRN PO ANXIETY / AGITATION; Start 01/05/21 at 16:15 Enoxaparin Sodium (Lovenox 40mg Syringe) 40 mg Q24H SQ ; Start 01/05/21 at 17:00; Stop 01/05/21 at 17:14; Status DC Sevoflurane (Ultane) 60 ml STK-MED ONCE IH ; Start 01/06/21 at 16:32; Stop 01/06/21 at 16:32; Status DC Fentanyl Citrate (Fentanyl 2ml Vial) 100 mcg STK-MED ONCE .ROUTE ; Start 01/06/21 at 16:32; Stop 01/06/21 at 16:32; Status DC Midazolam HCl (Versed) 2 mg STK-MED ONCE .ROUTE ; Start 01/06/21 at 16:32; Stop 01/06/21 at 16:32; Status DC Propofol (Diprivan) 200 mg STK-MED ONCE IV ; Start 01/06/21 at 16:32; Stop 01/06/21 at 16:33; Status DC Lidocaine HCl (Lidocaine Pf 2% Vial) 5 ml STK-MED ONCE .ROUTE ; Start 01/06/21 at 16:32; Stop 01/06/21 at 16:33; Status DC Dexamethasone Sodium Phosphate (Decadron) 4 mg STK-MED ONCE .ROUTE ; Start 01/06/21 at 16:32; Stop 01/06/21 at 16:33; Status DC Ondansetron HCl (Zofran) 4 mg STK-MED ONCE .ROUTE ; Start 01/06/21 at 16:33; Stop 01/06/21 at 16:33; Status DC Bupivacaine HCl/ Epinephrine Bitart (Sensorcain-Epi 0.25% Kit) 30 ml STK-MED ONCE .ROUTE ; Start 01/06/21 at 16:40; Stop 01/06/21 at 16:40; Status DC Cefazolin Sodium (Ancef) 1 gm STK-MED ONCE IVP ; Start 01/06/21 at 18:00; Stop 01/06/21 at 18:01; Status DC Vitals/I & O Vital Sign - Last 24 Hours 01/05/21 01/05/21 01/05/21 01/05/21 18:52 19:29 20:00 20:30 Temp 98.2 98.2 Pulse 69 Resp 20 18 B/P (MAP) 151/70 (97) Pulse Ox 98 98 O2 Delivery Room Air Room Air Room Air Room Air 2/14/01/05/21 01/05/21 01/06/21 21:00 23:20 23:25 00:25 Temp 98.8 98.8 Pulse 74 Resp 18 18 18 18 B/P (MAP) 132/71 (91) Pulse Ox 98 98 98 98 O2 Delivery Room Air Room Air Room Air Room Air 01/06/21 01/06/21 01/06/21 01/06/21 03:21 05:39 06:39 07:09 Temp 98.0 98.3 98.0 98.3 Pulse 76 68 Resp 18 18 18 B/P (MAP) 138/81 (100) 127/78 (94) Pulse Ox 97 97 99 O2 Delivery Room Air Room Air Room Air Room Air 01/06/21 01/06/21 01/06/21 01/06/21 08:35 11:11 12:16 12:46 Temp 97.8 97.8 Pulse 68 Resp 18 B/P (MAP) 116/63 (80) Pulse Ox 97 O2 Delivery Room Air Room Air Room Air Room Air 01/06/21 01/06/21 14:41 17:08 Temp 98.0 98.4 98.0 98.4 Pulse 82 98 Resp 18 17 B/P (MAP) 134/78 (96) 150/83 Pulse Ox 99 99 O2 Delivery Room Air Room Air Intake and Output 01/05/21 01/05/21 01/06/21 15:00 23:00 07:00 Intake Total 200 ml 450 ml 500 ml Balance 200 ml 450 ml 500 ml Justicifation of Admission Dx: Justifications for Admission: Justification of Admission Dx: Yes (leg fracture, req surg) JOAQUIN MARTIN MD Jan 06, 2021 18:27
[2021-01-06] MEDS ORDERED: MORPHINE SULFATE 2 MG/ML VIAL. ONE (19:36)
[2021-01-06] MEDS ORDERED: MORPHINE SULFATE 2 MG/ML VIAL. IV ONE (19:45)
[2021-01-06] MEDS ORDERED: oxyCODONE/APAP 5/325 1 TAB TABLET PO PRN ×2 (19:45)
--- NOTE | 2021-01-06 23:55 | NUR ---
Patient return from surgery at 2004. External fixator noted to LEFT ankle - sensation & ROM of toes intact. 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 Patient currently rates pain at 3-4 and states is currently comfortable. Vitals stable.
[2021-01-07 03:00] VITALS: BP 116/68
[2021-01-07] MEDS: IV NORMAL SALINE 1000ML BAG 1,000 ML IV SCH (06:04)
[2021-01-07] MEDS: KETOROLAC 15 MG/ML VIAL. IV SCH ×2 (06:04→12:00)
[2021-01-07] MEDS ORDERED: ASPIRIN ENTERIC COATED 325 MG TABLET.DR. PO SCH (08:00)
--- NOTE | 2021-01-07 14:35 | NUR ---
SW following. Discussed with RN, possible discharge home today. CARLOS A met with pt, and pt's family at bedside. [employer] has advised them on next steps. Pt is not eligible for Medicaid at this time. CARLOS A will continue to follow. Addendum: 01/07/21 at 1558 by ZE STRAUSS Pt needing a walker or crutches, pt is 6ft7 so standard walker is not tall enough. CARLOS A contacted [employer], pt can get a walker and tall crutches from [employer] ([address] [facility], [place] [address]) ph: [phone] - [employer] has crutches for $35. CARLOS A provided information to pt. No further SW needs.
[2021-01-07 15:00] VITALS: BP 122/56
--- NOTE | 2021-01-07 15:36 | PDOC3 ---
Discharge Summary Visit Information Date of Admission: Jan 05, 2021 Date of Discharge: Jan 07, 2021 Final Diagnosis lower leg fracture after a fall Highly comminuted intra-articular fracture of the distal tibia. leg pain Problems Medical Problems: (1) Unstable left ankle Status: Acute Brief Hospital Course Allergies Allergies Coded Allergies Type Severity Reaction Last Updated Verified No Known Drug Allergies 01/04/21 No Vital Signs Vital Signs Date Time Temp Pulse Resp B/P (MAP) Pulse Ox O2 Delivery O2 Flow Rate FiO2 01/07/21 15:00 98.3 56 16 122/56 (78) 99 Room Air 98.3 Brief Hospital Course Mr. Chacon is a 40 old admit for leg pain after a fall, marked severe fracture ORIF, with external halo, Dr. Mariscal in OR on 01/06 and he will need to f/u in 2 weeks, may need additional surg new meds Keflex 500 TID 10 days percocet 5/325 q4 prn #40 colace 100 bid asa 325 daily Discharge Information Condition at Discharge: Improved Follow Up: Weeks Disposition/Orders: D/C to Home Patient Instructions Patient Instructions face to face Justicifation of Admission Dx: Justifications for Admission: Justification of Admission Dx: Yes (leg fracture, req surg) JOAQUIN MARTIN MD Jan 07, 2021 15:36
--- NOTE | 2021-01-07 17:40 | NUR ---
Patient discharged home with self care. Patient educated on medications including aspirin daily. Patient educated on cleaning incision sites and care. Patient verbalized understanding.
--- NOTE | 2021-01-14 13:06 | PDOC4 ---
Operative Note Operative Note Date of Procedure: January 14, 2021 Pre-Op Diagnosis: Displaced pilon fracture of left tibia, initial encounter for closed fracture S82.872A Post-Op Diagnosis: Same Procedure: Application of uniplane (pins or wires in 1 plane), unilateral, external fixation system CPT 67666 Surgeon: Santos Mariscal MD Anesthesia: General EBL: 10 mL Specimens Obtained: none Complications: none Drains: none Findings: left ankle closed pilon displaced intra-articular fracture, with soft tissue swelling and fracture blisters Indications for Procedure: This is a 40-year-old man with a severe left distal tibia fracture. X-rays and CT scan show a comminuted pilon fracture with displacement of the talus. The soft tissues unfortunately are not amenable to internal fixation at this time and this will need to be staged procedures, with external fixator now, and presumably internal fixation in 3 to 4 weeks or when the soft tissues are healthy enough to tolerate surgery without such high risk of infection. I spoke to the patient about the recommendation for the external fixator and the potential risks of infection, neurovascular injury, pin tract infections, scarring, new fractures, or other potential surgical or anesthetic complications. All of his questions about surgery were answered and he desired to proceed. Procedure in Detail: The patient was identified in the preoperative holding area. The correct left lower extremity was marked by me. The patient was taken to the operating room where general anesthesia was used. The patient was positioned supine on the operating table. Preoperative antibiotics were given intravenously. A timeout procedure was performed. The limb was prepared in sterile fashion with surgical prep solution. Sterile drapes were applied. A bump was placed under the buttock. The large image intensifier was used. The calcaneal pin was placed. The large image intensifier was used, and the pin site was located, distal to the medial malleolus and 2 cm proximal to the calcaneal tuberosity and kept as far from the blistered skin as possible. A 15 blade scalpel was used for a skin incision. The calcaneal threaded pin was then advanced from medial to lateral, in the coronal plane. Two pins were placed in the tibial shaft, slightly medial to the tibial crest. A 15 blade scalpel was used to make the skin incision. The pin guide was used. Predrilling was performed with a 4.5 mm drill bit, anterior to posterior, for successful bicortical fixation. The first pin was then applied without difficulty. The second tibial pin was placed using the guide, after incision with a 15 blade scalpel, and predrilling. The large image intensifier was used to confirm the position of the pins, and adjustment made to the length of the pins for adequate bicortical fixation without over penetration into the soft tissues. The delta frame was then assembled with a 5 hole pin clamp attached to the 2 tibial pins. Angled connecting rods were used. 11 mm connecting rods were used medially and laterally. Michael to michael delta coupling connectors were used from the proximal angled rods to the connecting rods. Michael to pin delta coupling connectors were used on the calcaneal pin medially and laterally. The fixator was applied but not tightened. I performed the reduction with distal longitudinal traction using the calcaneal pin. Traction was used on the calcaneal pin, and the connectors were tightened. Final images in AP and lateral planes showed satisfactory tibiotalar alignment and slight traction across the joint. The comminuted intra-articular fracture remains, and appears reasonably well reduced with ligamentotaxis. The pins were irrigated with saline. The blisters were covered with Xeroform. Xeroform at the pin sites was used. Sterile dressings were applied. Needle and sponge counts were correct. There were no apparent complications. SANTOS MARISCAL MD Jan 14, 2021 13:06
== END 2021-01-07 17:46 | disposition home or self-care (01) | DRG 494 ==
LOC: ER 20:49 → 4 NORTH 22:28 → OBSVTOIN 01-05 16:17
PROVIDERS: ADMIT Internal Medicine; ATTEND Internal Medicine
PROC: 0QSH35Z Reposition Left Tibia with External Fixation Device, Percutaneous Approach (ICD-10-PCS; principal; 2021-01-05)
DX: S82.872A Displaced pilon fracture of left tibia, initial encounter for closed fracture (principal); S82.425A Nondisplaced transverse fracture of shaft of left fibula, initial encounter for closed fracture; Z20.822 Contact with and (suspected) exposure to COVID-19; W14.XXXA Fall from tree, initial encounter; Y99.0 Civilian activity done for income or pay; Z79.82 Long term (current) use of aspirin; Z82.49 Family history of ischemic heart disease and other diseases of the circulatory system; Y93.89 Activity, other specified; Y92.098 Other place in other non-institutional residence as the place of occurrence of the external cause
CPT/HCPCS: 36415; 73562; 73590; 73600; 73630; 73700; 76000; 80048; 85025; 93005; 96374; G0378; G0379; J0690; J1100; J1170; J1885; J2250; J2270; J2405; J2704; J3010; J7030; U0003; 97116-GP; 97530-GP; 97535-GO; 99285-25